=== PATIENT | male | born 1985 | race Two or more races ===

== ENCOUNTER 2022-04-14 21:33 | Emergency (ER) | payer BC, MEDICAID ==
[~2022-04-14] VITALS: Ht 165.1 cm; Wt 72.6 kg
[2022-04-14 22:03] VITALS: BP_SYST 129
--- NOTE | 2022-04-14 22:06 | NUR ---
JU MOSQUEDA FOR MED CLEARANCE/OK TO BOOK. PT DENIES ANY COMPLAINS. PT WAS SEEN AND EXAMINE BY DR. BRENNAN AT BEDSIDE.
--- NOTE | 2022-04-14 22:12 | NUR ---
Written and verbal consent obtained from patient for blood alcohol, name and verified by patient. Disinfected patient's skin with BETADINE that did not contain alcohol or other volatile organic compound. Collected the blood from the subject named by venipuncture, in the presence of Officer BROOK VELAZQUEZ#[id number]. Used a sterile, dry hypodermic needle and dry vacuum blood collection. Two dry vacuum blood collection was supplied by the officer named above. Withdrew a specimen of blood from LT AC of the subject named above. Inverted both blood tubes several times to ensure that the preservative and anticoagulant were thoroughly mixed in the blood specimen. I initialed both blood tube labels for identification. The labeled blood tubes were handed directly to the Officer named above. The blood tubes stopper remained in place while I had possession of the blood tubes. The Officer placed tubes into envelope and sealed it in my presence. Envelope initialed by myself and Officer named above. Patient tolerated well, bandage applied, and bleeding controlled.
[2022-04-14 22:20] VITALS: BP_SYST 122
--- NOTE | 2022-04-14 22:20 | NUR ---
DC PT ACCOMPANIED BY [facility] [place] OFFICER BROOK VELAZQUEZ#[id number], PT AAOX4, NO SOB NOTED AND NOT IN ANY DISTRESS UPON DC
== END 2022-04-14 22:20 ==
LOC: SED 21:33
DX: Z02.89 Encounter for other administrative examinations (principal); Z65.3 Problems related to other legal circumstances; Z79.899 Other long term (current) drug therapy
CPT/HCPCS: 99283